=== PATIENT | male | born 1940 | race Caucasian/White ===

== ENCOUNTER → 2016-09-09 | Outpatient (CLI) | payer OTHER, MEDICARE | END | disposition home or self-care (01) | LOC: GMAB 10:36 | PROVIDERS: ATTEND Family Medicine | DX: Z12.5 Encounter for screening for malignant neoplasm of prostate (principal); I10 Essential (primary) hypertension | CPT/HCPCS: 84443; G0103 ==

== ENCOUNTER → 2017-03-19 | Outpatient (CLI) | payer MEDICARE, OTHER ==
--- NOTE | 2017-03-21 07:24 | US ---
Procedure: US RETROPERITONEUM Exam Date: 03/19/2017 12:00 AM CDT Ordering Provider: JIMI MOLINA Clinical Indication: RENAL MASS Comparison: None available Technique: Real-time ultrasonography was obtained over the kidneys and quality audit representative images were recorded. Findings: The right kidney is normal in size and contour. Renal cortical thinning as well as increased echogenicity. There are no masses or hydronephrosis. 3 mm nonobstructing calculi. The left kidney is normal in size and contour. Renal cortical thinning as well as increased echogenicity. 5.0 x 4.7 x 5.2 cm lobulated hypoechoic structure within the superior pole the left kidney. There is no increased vascularity. This is favored to represent a simple cyst, however, further evaluation with renal mass CT can further evaluate. There is a smaller 1.5 x 1.3 cm simple cyst. There are no calculi or hydronephrosis. Impression: 1. Multilobulated 5.0 x 4.7 cm hypoechoic structure within the left kidney. This is favored to represent a simple cyst, however confirmation with renal mass protocol CT is recommended. 2. Medical renal disease. 3. No hydronephrosis. 4. Nonobstructing 3 mm calculi within the right kidney. Electronically signed by: Rene Stephens MD 03/21/2017 7:23 AM CDT
== END ==
LOC: US 08:30
PROVIDERS: ATTEND Urology
DX: D30.00 Benign neoplasm of unspecified kidney (principal); N20.0 Calculus of kidney

== ENCOUNTER → 2017-06-30 | Outpatient (CLI) | payer MEDICARE, OTHER ==
--- NOTE | 2017-07-01 21:38 | MRI ---
EXAM DESCRIPTION: Cervical Spine: MRI. CLINICAL HISTORY: RADICULOPATHY, CERVICAL REGION COMPARISON: Cervical spine radiographs 06/22/2017. TECHNIQUE: Multiplanar MRI, multiple sequences, non-contrast High-field. FINDINGS: C2-3: Disc desiccation with no significant bulging. Canal and bilateral foramina are patent. C3-4: Disc desiccation with posterior disc space loss. 9 x 8 mm cystic structure abutting the anterior and medial aspect of the left facet joint, encroaching on the lateral cord and the exiting left C4 nerve with neural foraminal compromise on the left. Mild narrowing of the right neural foramina. Advanced arthrosis of the left facet joint and minimal arthrosis of the right facet. Grade 1 anterolisthesis. Small uncinate spur on the right. C4-5: Disc desiccation with anterior bulging and annular fissure to the left of midline. Grade 1 anterolisthesis with posterior bulge in the midline abutting the cord with annular fissure. Bilateral moderate neural foraminal narrowing and mild canal narrowing. Mild arthrosis left facet. C5-6: Moderate disc space loss and disc desiccation. Anterior disc bulging and endplate ridging. Posterior disc osteophyte complex bulging 3 mm and abutting the cord. Trace retrolisthesis. Left neuroforamen patent. Right side disc osteophyte complex with right side spondylosis and severe right neural foraminal narrowing. Mild canal narrowing. C6-7: Disc desiccation and moderate disc space loss with anterior endplate ridging. Trace retrolisthesis. Right-sided spondylosis and disc spur osteophyte complex causing severe neural foraminal narrowing. Posterior disc bulge not abutting the cord. Mild canal narrowing and left neuroforamen is patent. Bilateral facets are unremarkable. C7-T1: Disc desiccation and trace anterolisthesis. Mild to moderate facet arthrosis bilaterally more on the left. Canal is patent. Moderate right neuroforaminal narrowing mild left neural foraminal narrowing. Hypertrophy of the posterior ligaments. T1-2: Disc desiccation with disc space maintained. No disc bulging. Canal and neural foramina are patent. Facets are unremarkable. No cord compression or cord edema. Spine is kyphotic C2-C6.. Atlantoaxial joint is minimally hypertrophied but not abutting the brainstem or cord.. Base of the cerebellar tonsils is above the foramen magnum. Paravertebral soft tissues are unremarkable. Vertebral bodies are not compressed at any level. Normal marrow signal in the remaining vertebral bodies and the posterior elements. IMPRESSION: 1. Synovial cyst from the left L3-4 degenerative facet encroaching on the left lateral cord and possible impingement of the exiting left L4 nerve. Correlate for left L4 radiculopathy. 2. Right side C5-6 spondylosis and disc osteophyte complex encroaching on the neural foramen. Severely narrowed. Correlate for right C6 radiculopathy. Posterior disc bulge. 3. Right-sided spondylosis at C6-7 with disc osteophyte complex encroaching on the neural foramen. Severely narrowed. Correlate for right C7 radiculopathy. Electronically signed by: Jewel Ray MD 07/01/2017 9:37 PM [facility]
== END | disposition home or self-care (01) ==
LOC: MRI 13:05
PROVIDERS: ATTEND Family Medicine
DX: M54.12 Radiculopathy, cervical region (principal)

== ENCOUNTER → 2017-08-13 | Outpatient (CLI) | payer MEDICARE, OTHER ==
--- NOTE | 2017-08-13 21:59 | US ---
EXAM DESCRIPTION: Carotid Duplex: ULTRASOUND. CLINICAL HISTORY: STENOSIS COMPARISON: Ultrasound of the abdominal aorta on the same visit. TECHNIQUE: Transcutaneous scanning utilizing 2-dimensional and Doppler modes to evaluate the bilateral carotid systems and vertebral arteries. Percentage of diameter of stenosis or no stenosis recorded will be based upon NASCET criteria. FINDINGS: Peak systolic/end diastolic (CM-Sec) CCA Right 87/25 Left 73/20. ICA Right proximal 60/24, mid 81/31. Left proximal 60/24, mid 57/21. Vertebral Right 46/13 Left 35/11. ECA (PS Only) Right 63 left 65. ICA/CCA peak systolic ratio: Right 0.9 Left 0.8 ICA/CCA end diastolic ratio: Right 1.3 Left 1.2 Vertebral arteries: antegrade flow. Comments: Atherosclerotic calcification in the bilateral carotid bifurcations and proximal ICAs. Spectral broadening bilateral proximal ICAs. Color turbulent flow mid right ICA. 30% area stenosis in the proximal right ICA; diameter stenosis 35%. Area stenosis proximal left ICA 41%; diameter stenosis identical. IMPRESSION: 1. Doppler evaluation of the bilateral carotid systems and vertebral arteries shows no hemodynamically significant stenoses. 2. No significant amount of plaque seen in the carotid arteries bilaterally. Bilateral vertebral arteries showed antegrade-cephalad flow. Electronically signed by: Jewel Ray MD 08/13/2017 9:57 PM [employer] Workstation: [id number]
--- NOTE | 2017-08-13 22:01 | US ---
EXAM DESCRIPTION: Aorta: Ultrasound. CLINICAL HISTORY: AAA COMPARISON: Duplex ultrasound evaluation of the bilateral carotid and vertebral vessels on this visit. TECHNIQUE: Transcutaneous scanning: Two-dimensional and Doppler modes. Technically difficult study due to patient large body habitus. FINDINGS: Abdominal aorta diameter (cm) Proximal: 2.7 x 2.0. Mid: 2.4 x 1.9. Distal: 2.5 x 2.2. Common Iliac diameter (mm) Right: 11. Left: 8.8. Other: Intimal wall thickening and irregularity with minimal calcification. IMPRESSION: No abdominal aortic aneurysm. No follow-up imaging is recommended at this time. Electronically signed by: Jewel Ray MD 08/13/2017 10:[address] [facility] Workstation: [id number]
== END | disposition home or self-care (01) ==
LOC: US 08:00
PROVIDERS: ATTEND Family Medicine
DX: I71.4 Abdominal aortic aneurysm, without rupture (principal); I65.23 Occlusion and stenosis of bilateral carotid arteries

== ENCOUNTER → 2017-09-29 | Outpatient (CLI) | payer MEDICARE, OTHER ==
--- NOTE | 2017-09-30 10:08 | US ---
EXAM DESCRIPTION: Renal: Ultrasound. CLINICAL HISTORY: COMPLEX RIGHT RENAL CYST COMPARISON: Bilateral renal arterial Doppler evaluation on the same visit. TECHNIQUE: Transcutaneous scanning: Two-dimensional and Doppler modes. FINDINGS: Right kidney measures 11.4 x 3.8 x 3.7 cm; mid-renal cortical thickness 15 mm. . Normal echogenicity. Mixed isoechoic and hypoechoic lobulated solid appearing mass in the mid cortex measuring 4.2 x 3.8 cm and peripherally vascular. No hydronephrosis No calcifications. Smooth contour of the kidney except for where the mass displaces the cortex. No perinephric fluid. Otherwise normal vascularity. Proximal ureter not visualized. Left kidney measures 12.2 x 5.6 x 5.4 cm; mid-renal cortical thickness 15 mm.. 4.9 x 4.7 x 4.5 mm mostly anechoic cyst with lobulated borders and possible septation. Second anechoic cyst measures 1.5 x 1.5 x 1.4 cm. No hydronephrosis. No calcifications. Smooth contour of the kidney with no perinephric fluid. Normal vascularity.. Proximal ureter not visualized. Urinary bladder not visualized. Abdominal aorta diameter not measured IMPRESSION: 1. Stable slightly lobulated cyst with septation in the left kidney maximum diameter 4.9 mm. No abnormal vascularity. Also stable second smaller simple cyst. 2. 4.2 cm lobulated solid mass in the right kidney mid segment, peripheral vascularity. Not seen on the prior study. Differential includes focal thickening of the cortex, benign or malignant solid tumor. Consider follow-up CT scan without and with IV contrast and thin sections. CRITICAL COMMUNICATION: The critical value was discussed directly by phone with Dr. Smyth's office nurse, Ms. Laura Dominguez LVN at approximately 1000 hours, on September 30, 2017. Electronically signed by: Jewel Ray MD 09/30/2017 10:07 AM [employer]
== END ==
LOC: US 13:54
PROVIDERS: ATTEND Urology
DX: N28.1 Cyst of kidney, acquired (principal)

== ENCOUNTER → 2017-10-08 | Outpatient (CLI) | payer MEDICARE, OTHER ==
--- NOTE | 2017-10-08 17:09 | CT ---
EXAM DESCRIPTION: CT ABDOMEN WITH CONTRAST CLINICAL HISTORY: RENAL MASS D30.00 COMPARISON: None Available. TECHNIQUE: CT of the abdomen is performed during IV bolus administration of 100 mL Optiray 320 Oral contrast media is administered as well. FINDINGS: The lung bases are clear of infiltrate. Lesions in the right lobe of the liver range in size from 0.9 to 2.1 cm and may represent cysts or incompletely enhanced hemangiomas. The larger lesion has subtle evidence of peripheral nodular enhancement. Normal enhancement of upper abdominal vessels. Gallbladder appears normal. No inflammation around the pancreas. Small accessory splenule is present. Normal adrenal glands. Stones are seen in both kidneys without obstructive uropathy. Stone in the upper calyx of the right kidney measures 4 mm. Stones in the left kidney measure 6 mm and 7 mm. Large lesion in the posterior left kidney is consistent with a cyst measuring 5.5 cm in diameter with a density of 13.6 Hounsfield units. A lesion at the lower pole of left kidney is consistent with another small cyst 1.8 cm in size with a density of 22 Hounsfield units. Question small cyst in the medial lower right kidney but this is not definite. No solid-appearing right renal mass is seen. Some mild surface undulation of the posterior right kidney is seen consistent with cortical scarring. There is normal enhancement of renal cortex bilaterally with a symmetrical appearance. Normal adrenal glands. Calcified aorta is seen without aneurysm. No retroperitoneal or mesenteric adenopathy. Bowel loops are unremarkable. Small accessory splenule is present. No free air or free fluid. Coronal and sagittal reformatted images confirm the findings. Sagittal images show advanced degenerative disc disease of lower thoracic and lumbar spine. On the coronal images, subtle nodular enhancement is seen around all 3 of the hepatic lesions strongly suggesting hemangiomas. Sonography might be helpful to demonstrate typical sonographic appearance of benign cavernous hemangiomas. Correlating with the previous sonogram September 29, 2017, the questioned mass in the right kidney was apparently prominent renal cortex perhaps between areas of scarring. Renal cysts were noted at the time the previous sonogram. IMPRESSION: Renal cysts. No solid-appearing renal mass in either kidney. Bilateral nonobstructing renal calculi. Hepatic lesions probably incompletely unenhanced hemangiomas. This exam was performed according to our departmental dose-optimization program, which includes automated exposure control, adjustment of the mA and/or kV according to patient size and/or use of iterative reconstruction technique. Total DLP equals 576.01 mGycm. Electronically signed by: Sanchez Ann MD 10/08/2017 5:09 PM [employer]ORE MA[employer]GER
== END ==
LOC: CT 07:47
PROVIDERS: ATTEND Urology
DX: D30.00 Benign neoplasm of unspecified kidney (principal); N20.0 Calculus of kidney; N28.1 Cyst of kidney, acquired

== ENCOUNTER → 2017-10-19 | Outpatient (CLI) | payer MEDICARE, OTHER | LOC: GMAB 12:34 | PROVIDERS: ATTEND Family Medicine | DX: I10 Essential (primary) hypertension (principal); Z12.5 Encounter for screening for malignant neoplasm of prostate | CPT/HCPCS: 84443; G0103 ==

== ENCOUNTER → 2018-05-30 | Outpatient (CLI) | payer MEDICARE, OTHER ==
--- NOTE | 2018-05-30 14:36 | US ---
EXAM DESCRIPTION: Abdomen,Complete: Ultrasound. CLINICAL HISTORY: RENAL CYST COMPARISON: None Available. TECHNIQUE: Transabdominal scannin-dimensional and Doppler modes. FINDINGS: Gallbladder: Normal size and echogenicity with no intraluminal stones or sludge. Wall thickness normal 2.7 mm. No fluid around the wall. Nontender with transducer pressure. Common bile duct: Normal caliber 5.7 mm. Liver: Right lobe long axis is 17.7 cm. Circumscribed echogenic region in the right lobe measures 2.6 x 2.1 x 1.7 cm. Otherwise normal echogenicity. Smooth capsule. Hepatopedal flow in the portal vein which is normal caliber, 1 cm. Intrahepatic ducts are negative. No surrounding ascites. Pancreas: Normal size and echogenicity. Duct not seen.. Abdominal aorta: Normal caliber from the proximal segment to the distal bifurcation. IVC: visualized; normal caliber. Spleen normal echogenicity; long axis measurement is 10.2 cm. Right kidney: 11.1 cm long axis with cortical thickness 11 mm and minimal increased echogenicity. Capsule is mildly lobulated. No hydronephrosis or perinephric fluid. Left kidney: 12.1 cm long axis with normal cortical thickness and echogenicity. 5.6 cm simple cyst projecting from the cortex medially. Second cyst has simple characteristics measuring 1.4 cm. IMPRESSION: 1. Appearance of the cortical thinning and increased echogenicity in the right kidney suggesting early or mild chronic renal disease. No obstruction. Left kidney has a 5.6 cm cyst otherwise, unremarkable; smaller cyst also in the kidney. 2. Liver borderline enlarged with 2.6 cm lesion most likely a hemangioma. Liver otherwise unremarkable. If liver disease is suspected or clinically significant, consider follow-up triple phase CT scan of the liver without and with IV contrast. 2. Unremarkable ultrasound findings in the gallbladder, pancreas, and spleen. Common bile duct is unremarkable. Normal aorta and IVC are normal caliber. Electronically signed by: Jewel Ray MD 05/30/2018 2:34 PM CDT
== END ==
LOC: US 09:00
PROVIDERS: ATTEND Urology
DX: D37.6 Neoplasm of uncertain behavior of liver, gallbladder and bile ducts (principal); N28.1 Cyst of kidney, acquired

== ENCOUNTER → 2018-06-01 | Outpatient (CLI) | payer MEDICARE, OTHER | LOC: LAB.O 08:26 | PROVIDERS: ATTEND Internal Medicine Interventional Cardiology | DX: E78.5 Hyperlipidemia, unspecified (principal) ==

== ENCOUNTER → 2018-06-16 | Outpatient (CLI) | payer MEDICARE, OTHER ==
--- NOTE | 2018-06-17 07:45 | RAD ---
EXAM: Pelvis CLINICAL HISTORY: LEFT HIP PAIN COMPARISON STUDY: None TECHNICAL: AP pelvis FINDINGS: The pelvic ring is intact. There is no evidence of an acute fracture. The left hip shows mild to moderate degenerative changes with minimal subchondral sclerosis and periarticular osteophytes. There are milder degenerative changes of the right hip. There are no blastic or lytic lesions. Diffuse osseous demineralization is present. IMPRESSION: 1. Mild to moderate degenerative change of the left hip and mild degenerative change in the right hip. 2. Osteopenia. Electronically signed by: Daniele Bridges MD 06/17/2018 7:44 AM [facility]
--- NOTE | 2018-06-17 07:46 | RAD ---
EXAM: Knee,Left Complete CLINICAL HISTORY: LEFT KNEE PAIN COMPARISON STUDY: None. TECHNICAL: 2 views of the knee. FINDINGS: Views of the knee demonstrate no fracture or dislocation. There is no acute bone abnormality. Joint space loss of the medial compartment is moderate to severe. There is early subchondral sclerosis. There are no large peripheral osteophytes. Mild degenerative changes are seen at the patellofemoral joint. There is a small effusion. IMPRESSION: 1. Moderate degenerative changes of the medial compartment and mild at the patellofemoral joint. 2. Small joint effusion. Electronically signed by: Daniele Bridges MD 06/17/2018 7:45 AM [facility]
== END ==
LOC: RAD 06-15 19:27
PROVIDERS: ATTEND Orthopaedic Surgery
DX: M25.562 Pain in left knee (principal); M25.552 Pain in left hip; M85.88 Other specified disorders of bone density and structure, other site; M25.462 Effusion, left knee

== ENCOUNTER → 2018-07-11 | Outpatient (CLI) | payer MEDICARE, OTHER | LOC: RESP 08:02 | PROVIDERS: ATTEND Orthopaedic Surgery | DX: Z01.818 Encounter for other preprocedural examination (principal) ==

== ENCOUNTER 2018-08-09 05:32 | Inpatient (IN) | payer MEDICARE, OTHER ==
--- NOTE | 2018-08-08 11:30 | HP ---
CHIEF COMPLAINT: Left knee pain. HISTORY OF PRESENT ILLNESS: Mr. Mcnamara is a 77-year-old male with a history of knee pain that has been going on for several years and getting progressively worse. He has failed conservative measures and still has difficulty with his activities. Because of the difficulty with activities and failure of conservative measures, he has requested operative intervention. After discussing the risks, benefits and alternatives to operative therapy, he has given informed consent for total knee arthroplasty. PAST SURGICAL HISTORY: 1. Right total knee arthroplasty. MEDICATIONS: 1. Rifampin. ALLERGIES: PENICILLIN: CODE STATUS: Full code. IMMUNIZATIONS: Up to date. FAMILY HISTORY: None pertinent to today's complaint. SOCIAL HISTORY: The patient does not smoke or use any illicit drugs. He drinks on occasion. REVIEW OF SYSTEMS: Negative except as indicated in the History of Present Illness. PHYSICAL EXAMINATION: VITAL SIGNS: Blood pressure 137/82. Pulse 83. Height 5'8". Weight 155 pounds. MENTAL STATUS: The patient is awake, alert, and is able to give a good history and participate in the physical. The patient is oriented to person, place and time. SKIN: Normal tone and turgor. HEENT: Normocephalic, atraumatic. Pupils equal, round and reactive. Mucosal membranes are moist. NECK: Normal range of motion. No thyromegaly, no lymphadenopathy. CHEST: Normal respiratory excursion. CARDIAC: Regular rate and rhythm. No murmurs, rubs or gallops. MUSCULOSKELETAL: The bilateral upper extremities show full active range of motion. He has intact sensation. They are warm and well perfused. He has no crepitus and no deformity. He has no malalignment. Strength is 5/5. The right lower extremity shows full extension and flexion is to about 125 degrees. Sensation is intact and it is warm and well perfused. There is no obvious malalignment. The left lower extremity has flexion to about 125 to 130 degrees. He has crepitus throughout his range of motion and has pain with palpation diffusely. He also has pain with patellar mobilization. There is no varus/valgus or anterior/posterior laxity. IMAGING: X-rays show severe arthritis. ASSESSMENT: 1. Osteoarthritis. PLAN: The plan at this point is for total knee arthroplasty. We have discussed the risks, benefits, and alternatives to that and the patient has given informed consent. #[id number] [facility]
[2018-08-09] MEDS ORDERED: SODIUM CHL 0.9% 100ML MINI-BAG 100 ML IVPB ONE (05:51)
[2018-08-09] MEDS ORDERED: LACTATED RINGERS 1,000 ML ONE (05:52)
[2018-08-09] MEDS ORDERED: TRANEXAMIC ACID 1,000 MG/10 ML VIAL ONE ×3 (05:53→06:42)
[2018-08-09] MEDS ORDERED: VANCOMYCIN HCL INJ 1,000 MG VIAL IVPB ONE ×2 (05:53→16:32)
[2018-08-09] MEDS ORDERED: SODIUM CHLORIDE 0.9% 250ML 250 ML ONE ×2 (05:53→16:31)
[2018-08-09] MEDS ORDERED: ceFAZolin SODIUM 1 GM VIAL ONE ×2 (05:53→06:29)
[2018-08-09] MEDS ORDERED: SODIUM CHLORIDE 0.9% 100ML 100 ML IVPB ONE (05:58)
[2018-08-09] MEDS ORDERED: ACETAMINOPHEN IV 1000MG 100 ML ONE (06:27)
[2018-08-09] MEDS ORDERED: fentaNYL CITRATE INJ 50 MCG/ML AMP ONE (06:28)
[2018-08-09] MEDS ORDERED: MIDAZOLAM INJ 5 MG/5 ML VIAL ONE (06:28)
[2018-08-09] MEDS ORDERED: MORPHINE SULF *EPIDURAL* 1 MG/ML VIAL ONE (06:28)
[2018-08-09] MEDS ORDERED: BUPIVACAINE LIPOSOME 13.3 MG/ML VIAL INJ ONE (06:29)
[2018-08-09] MEDS ORDERED: ROCURONIUM BROMIDE 10 MG/ML VIAL ONE (07:23)
[2018-08-09] MEDS: BUPIVACAINE 0.5% 30 ML VIAL INJ ONE ×2 (08:02→08:49)
[2018-08-09] MEDS: ceFAZolin SODIUM 1 GM VIAL ONE ×2 (08:02→08:48)
[2018-08-09] MEDS: BUPIVACAINE LIPOSOME 13.3 MG/ML VIAL INJ ONE ×2 (08:02→08:49)
[2018-08-09] MEDS: VANCOMYCIN HCL INJ 1,000 MG VIAL IVPB ONE ×2 (08:02→08:48)
[2018-08-09] MEDS ORDERED: ELECTROLYTE-A 1,000 ML IVS ONE (08:36)
[2018-08-09] MEDS ORDERED: SUGAMMADEX SODIUM 200 MG/2 ML VIAL IV ONE (08:38)
[2018-08-09] MEDS ORDERED: PROPOFOL 200 MG/20 ML VIAL IV ONE (10:00)
[2018-08-09] MEDS ORDERED: DEXAMETHASONE INJ 10 MG/ML VIAL IV ONE (10:00)
[2018-08-09] MEDS ORDERED: METOCLOPRAMIDE HCL INJ 10 MG/2 ML VIAL IV ONE (10:00)
[2018-08-09] MEDS ORDERED: raNITIdine HCL INJ 25 MG/ML VIAL IV ONE (10:00)
[2018-08-09] MEDS ORDERED: ePHEDrine SULF 50 MG/ML IV ONE (10:00)
[2018-08-09] MEDS ORDERED: LIDOCAINE 1% 10 ML VIAL INJ ONE (10:00)
[2018-08-09] MEDS ORDERED: MORPHINE PCA 1 MG/ML 100 ML BAG IVPB ONE (10:08)
[2018-08-09] MEDS ORDERED: NALOXONE HCL INJ 0.4 MG/ML VIAL IV PRN (10:10)
[2018-08-09] MEDS ORDERED: ZOLPIDEM TARTRATE 5 MG TAB PO PRN (10:10)
[2018-08-09] MEDS ORDERED: PROMETHAZINE HCL INJ 25 MG in SODIUM CHLORIDE 0.9% 50ML 50 ML IVPB PRN (10:10)
[2018-08-09] MEDS ORDERED: BISACODYL SUPPOSITORY 10 MG PR PRN (10:10)
[2018-08-09] MEDS ORDERED: MORPHINE SULFATE INJ 10 MG/ML VIAL IM PRN (10:10)
[2018-08-09] MEDS ORDERED: TRANEXAMIC ACID INJ 1,000 MG in SODIUM CHLORIDE 0.9% 100ML 100 ML IVPB ONE (10:10)
[2018-08-09] MEDS ORDERED: ALUMINUM & MAGNESIUM HYDROXIDE 30 ML UD PO PRN (10:10)
[2018-08-09] MEDS ORDERED: ONDANSETRON INJ 4 MG/2 ML VIAL IV PRN (10:10)
[2018-08-09] MEDS ORDERED: MAGNESIUM HYDROXIDE 30 ML UD PO PRN (10:10)
[2018-08-09] MEDS ORDERED: PROMETHAZINE HCL INJ 12.5 MG in SODIUM CHLORIDE 0.9% 50ML 50 ML IVPB PRN (10:10)
[2018-08-09] MEDS ORDERED: DEX 5% W/NACL 0.45% 1000ML 1,000 ML IVS PRN (10:10)
[2018-08-09] MEDS ORDERED: MORPHINE SULFATE INJ 10 MG/ML VIAL IV PRN (10:10)
[2018-08-09] MEDS ORDERED: ACETAMINOPHEN 500 MG TAB PO PRN (10:10)
[2018-08-09] MEDS ORDERED: SODIUM CHLORIDE 0.9% (FLUSH) 10 ML SYG IV PRN (10:10)
[2018-08-09] MEDS ORDERED: BENZOCAINE-MENTH LOZ (CEPACOL) 1 EA LOZ MT PRN (10:10)
[2018-08-09] MEDS ORDERED: ACETAMINOPHEN 325 MG TAB PO PRN (10:10)
[2018-08-09] MEDS ORDERED: MORPHINE PCA 1 MG/ML 100 ML BAG IVPB SCH (10:30)
[2018-08-09] MEDS ORDERED: SODIUM CHLORIDE 0.45% 1000ML 1,000 ML IVS PRN (11:31)
--- NOTE | 2018-08-09 11:33 | RAD ---
EXAM DESCRIPTION: Knee,Left 2 or More Views CLINICAL HISTORY: 78 years Male, TKA COMPARISON: June 16, 2018 FINDINGS: There has been interval left knee arthroplasty without hardware or other surgical complication. There is soft tissue gas anteriorly is likely related to recent surgery. Vascular calcifications are noted. IMPRESSION: Postoperative changes in the left knee without apparent hardware or other surgical complication. Electronically signed by: Andrew Lechuga MD 08/09/2018 11:32 AM [facility]
--- NOTE | 2018-08-09 12:02 | CONS ---
SUPERVISING PHYSICIAN: Elmo Beauchamp MD REASON FOR CONSULTATION: Medical management postoperatively. HISTORY OF PRESENT ILLNESS: This is a 77-year-old male patient who has been having ongoing left knee pain for several years. He failed conservative measures and, therefore, had an elective left total knee arthroplasty today. There were no intraoperative complications. Postoperatively, he is awake without any significant pain at this time although he has had some pain medications. We have been asked by Dr. Mcallister for medical management. PAST MEDICAL HISTORY: 1. Diabetes mellitus, for which he takes metformin. 2. Hyperlipidemia. 3. Hypertension. 4. Osteoarthritis. PAST SURGICAL HISTORY: 1. Colonoscopy. 2. Right total knee arthroplasty. 3. Nasal surgery. CURRENT MEDICATIONS: 1. Lisinopril 30 mg in the morning. 2. Metformin 1000 mg b.i.d. 3. Mobic 50 mg daily. 4. HCTZ 25 mg daily. 5. Prilosec 40 mg daily. 6. Advil 200 mg 3 times p.o. daily. ALLERGIES: PENICILLIN. FAMILY HISTORY: Father is 92 years old. Mother at age of 80 from stroke. Brother with cardiomyopathy at age 59. SOCIAL HISTORY: He is a nonsmoker, no illicit drugs. He does drink some vodka on occasion. He quit smoking in 1980. REVIEW OF SYSTEMS: CONSTITUTIONAL: No fever or chills. No recent weight loss or weight gain. HEENT: No headaches, vision changes, ear pain, nasal congestion or throat pain. RESPIRATORY: No cough, hemoptysis or pleuritic chest pain. CARDIOVASCULAR: No chest pain, palpitations or peripheral edema. GASTROINTESTINAL: No nausea, vomiting, diarrhea, constipation or abdominal pain. GENITOURINARY: No dysuria, frequency or flank pain. HEMATOLOGIC: No easy bruising and no transfusion reaction. MUSCULOSKELETAL: Positive for left knee pain. No other joint pain or joint swelling. ENDOCRINE: No polydipsia, polyuria or polyphagia. No heat or cold intolerance. PHYSICAL EXAMINATION: VITAL SIGNS: Blood pressure 116/64. Heart rate 89. Respiratory rate 16. Temperature 97.2. Oxygen saturation 96%. GENERAL: Mr. Mcnamara is a 78-year-old male patient in no active distress currently. HEENT: Normocephalic, atraumatic. Pupils are equal and reactive. No nasal drainage. Throat with slightly dry mucosa. NECK: Supple. Midline trachea. No jugular venous distention. CHEST: Symmetrical with equal rise and fall of the chest with inspiration and expiration. Lung sounds are clear to auscultation bilaterally. CARDIOVASCULAR: Regular rate and rhythm. Normal S1, S2. ABDOMEN: Soft. Positive bowel sounds. No tenderness to palpation. No organomegaly. GENITOURINARY: Deferred. EXTREMITIES: Lower extremities with no significant edema. Pulses 2+. Capillary refill is less than 2 seconds. There are SCDs to bilateral lower extremities. The left knee is wrapped in an Jama type dressing. ASSESSMENT: 1. Left knee osteoarthritis status post left total knee arthroplasty. 2. History of diabetes, reportedly controlled on metformin. 3. Hypertension, currently controlled. 4. Hyperlipidemia. PLAN: The patient will participate in physical therapy postoperatively per Dr. Mcallister's orders. We will recheck his hemoglobin in the morning to ensure that is okay. I will resume all his home medications and ensure he is on DVT prophylaxis. #[id number] [facility]
--- NOTE | 2018-08-09 13:57 | RAD ---
EXAM DESCRIPTION: Knee,Left 2 or More Views CLINICAL HISTORY: 78 years Male, TKA COMPARISON: June 16, 2018 FINDINGS: There has been interval left knee arthroplasty without hardware or other surgical complication. There is soft tissue gas anteriorly is likely related to recent surgery. Vascular calcifications are noted. IMPRESSION: Postoperative changes in the left knee without apparent hardware or other surgical complication. Electronically signed by: Andrew Lechuga MD 08/09/2018 11:32 AM [facility]
--- NOTE | 2018-08-09 14:08 | RAD ---
EXAM DESCRIPTION: Knee,Left 2 or More Views CLINICAL HISTORY: 78 years Male, TKA COMPARISON: June 16, 2018 FINDINGS: There has been interval left knee arthroplasty without hardware or other surgical complication. There is soft tissue gas anteriorly is likely related to recent surgery. Vascular calcifications are noted. IMPRESSION: Postoperative changes in the left knee without apparent hardware or other surgical complication. Electronically signed by: Andrew Lechuga MD 08/09/2018 11:32 AM [facility]
[2018-08-09] MEDS: IV SET AND CAP CHANGE INJ INJ SCH (16:29)
[2018-08-09] MEDS ORDERED: ceFAZolin SODIUM 2 GRAMS PREMI 50 ML IVPB ONE ×2 (16:31→19:42)
[2018-08-09] MEDS: ceFAZolin SODIUM 2 GRAMS PREMI 2 GM in PREMIX BAG 1 BAG IVPB SCH ×2 (16:33→23:52)
[2018-08-09] MEDS: metFORMIN HCL 500 MG TAB PO SCH (16:57)
[2018-08-09] MEDS: CELECOXIB 100 MG CAP PO SCH (16:57)
[2018-08-09] MEDS: VANCOMYCIN HCL INJ 1,000 MG in SODIUM CHLORIDE 0.9% 250ML 250 ML IVPB SCH (17:44)
[2018-08-09] MEDS ORDERED: ENOXAPARIN SODIUM 30 MG/0.3 ML SYG SUBCU ONE (19:42)
[2018-08-09] MEDS ORDERED: diphenhydrAMINE HCL 25 MG CAP PO PRN (21:09)
[2018-08-09] MEDS ORDERED: OMEPRAZOLE CAP 20 MG CAP ONE (21:13)
[2018-08-09] MEDS: DOCUSATE CALCIUM 240 MG CAP PO SCH (21:35)
[2018-08-09] MEDS: OMEPRAZOLE CAP 20 MG CAP PO SCH (21:35)
[2018-08-09] MEDS: LISINOPRIL 10 MG TAB PO SCH (21:36)
[2018-08-09] MEDS: ENOXAPARIN SODIUM 30 MG/0.3 ML SYG SUBCU SCH (23:28)
[2018-08-10] MEDS: HYDROcodone 5MG/APAP 325MG 1 EA TAB PO PRN ×4 (04:56→21:18)
[2018-08-10] MEDS ORDERED: SODIUM CHLORIDE 0.9% 250ML 250 ML ONE (05:02)
[2018-08-10] MEDS ORDERED: VANCOMYCIN HCL INJ 1,000 MG VIAL IVPB ONE (05:03)
[2018-08-10] MEDS: VANCOMYCIN HCL INJ 1,000 MG in SODIUM CHLORIDE 0.9% 250ML 250 ML IVPB SCH (06:13)
[2018-08-10] MEDS: OMEPRAZOLE CAP 20 MG CAP PO SCH (06:13)
--- NOTE | 2018-08-10 07:58 | OP ---
DATE OF PROCEDURE: 08/09/18 PREOPERATIVE DIAGNOSIS: 1. Osteoarthritis of the knee. POSTOPERATIVE DIAGNOSIS: 1. Osteoarthritis of the knee. PROCEDURE: 1. Total knee arthroplasty. SURGEON: William Mcallister MD. CATTLE FEEDER: Jewel Miller CST, SA-C. ANESTHESIA: General anesthesia. COMPLICATIONS: None. FINDINGS: Severe osteoarthritis of the knee. INDICATION: Mr. Mcnamara has a long history of pain in the knee. It has been refractory to conservative measures. Because of the ongoing pain, he has requested operative intervention. After discussing the risks, benefits and alternatives to that, the patient has given informed consent for total knee arthroplasty. PROCEDURE: The patient was brought to the Operating Room and placed in supine position. General anesthesia was induced and the patient's leg was sterilely prepped and draped. Following prepping and draping, the distal femur was exposed and using an intramedullary guide, the distal femoral cut was made. The appropriate sized cutting block was measured, pinned into place, and the anterior, posterior, and chamfer cuts were made. The ACL was transected and the tibia was subluxed. Both the medial and lateral menisci were removed. An intramedullary guide was used to make the proximal tibial cut. The appropriate sized base plate was placed and a trial polyethylene was placed. The trial femur was placed, the knee was reduced, and the knee was taken through a range of motion. The knee was stable in anterior, posterior, varus and valgus stress. The patella tracked anatomically without evidence of subluxation or dislocation. After trialing, the trial components were removed and the bony surfaces were thoroughly irrigated with saline. Following irrigation, the surfaces were dried and the final components were cemented into place. The excess cement was removed and the remaining cement was allowed to cure. The knee was again taken through a range of motion to confirm stability. The wound was then irrigated with saline and closure was performed using PDS to approximate the arthrotomy followed by closure of the subcutaneous tissues with a combination of running and interrupted Monocryl sutures. Sterile dressing was placed. The patient was awoken from anesthesia and taken to Recovery. COMPONENTS: [place] [employer] knee, size 3 femur, size 4 tibia, 11 mm insert. POSTOPERATIVE PLAN: The patient will be weight-bearing as tolerated on postoperative day 1. #[id number] [facility]
[2018-08-10] MEDS ORDERED: ceFAZolin SODIUM 2 GRAMS PREMI 50 ML IVPB ONE (08:06)
[2018-08-10] MEDS: metFORMIN HCL 500 MG TAB PO SCH ×2 (08:08→17:01)
[2018-08-10] MEDS: CELECOXIB 100 MG CAP PO SCH ×2 (08:09→17:01)
[2018-08-10] MEDS: ceFAZolin SODIUM 2 GRAMS PREMI 2 GM in PREMIX BAG 1 BAG IVPB SCH (08:09)
[2018-08-10] MEDS: FISH OIL 1,200 MG CAP PO SCH (08:45)
[2018-08-10] MEDS: MULTIPLE VITAMINS W/ MINERALS 1 EA TAB PO SCH (08:45)
[2018-08-10] MEDS: MAGNESIUM OXIDE 400 MG TAB PO SCH (08:45)
[2018-08-10] MEDS ORDERED: MAGNESIUM SULFATE PREMIX 2GM 2 GM in PREMIX BAG 1 BAG IVPB ONE (09:18)
[2018-08-10] MEDS ORDERED: MAGNESIUM SULFATE PREMIX 2GM 50 ML IVPB ONE (10:01)
[2018-08-10] MEDS: CYCLOBENZAPRINE HCL 10 MG TAB PO PRN ×2 (10:45→18:21)
--- NOTE | 2018-08-10 11:13 | PN ---
DATE: 08/10/18 SUBJECTIVE: He is doing pretty well and he has good pain control today. OBJECTIVE: Afebrile. Vital signs stable. Dressing is clean, dry and intact. ASSESSMENT: Status post total knee arthroplasty. PLAN: The plan at this point is to continue with weightbearing as tolerated as well as CPM. #[id number] [facility]
[2018-08-10] MEDS: ENOXAPARIN SODIUM 30 MG/0.3 ML SYG SUBCU SCH ×2 (11:28→22:38)
--- NOTE | 2018-08-10 13:32 | PN ---
SUPERVISING PHYSICIAN: Elmo Beauchamp MD DATE: 08/10/18 SUBJECTIVE: The patient is sitting up in his chair in his room. He just finished physical therapy and got slightly nauseated after his therapy session. His nurses gave him some Zofran. Other than the nausea, he has no complaints. His is at the bedside. We discussed his plan of care. OBJECTIVE: VITAL SIGNS: T-max 24 hours 100.1. Heart rate 90. Blood pressure 102/61. Respiratory rate 18. O2 saturation 93% on 2 liters. RESPIRATORY: Essentially clear to auscultation bilaterally. CARDIAC: Regular rate and rhythm. GASTROINTESTINAL: Abdomen is soft, nondistended, nontender. Bowel sounds are positive. EXTREMITIES: He has a dressing with an [place] bandage to his left knee that is dry and intact. Bilateral pedal pulses are palpable at +2. NEUROLOGIC: Awake, alert and oriented times three. LABORATORY: Hemoglobin 9.7, hematocrit 27.6. Sodium 130, potassium 3.8, chloride 94, carbon dioxide 28, BUN 13, creatinine 0.65. Blood sugars have run between 175 and 217. Hemoglobin A1c is 6.1. Calcium 8.1, magnesium 1.3. All other labs and films have been reviewed via the EMR. ASSESSMENT: 1. Left knee osteoarthritis status post left total knee arthroplasty performed per Dr. William Mcallister, orthopedic surgeon, postoperative day #1. 2. Electrolyte imbalance, mostly hyponatremia and hypomagnesemia. 3. History of diabetes with hemoglobin A1c of 6.1. His diabetes is controlled on metformin. 4. Hypertension, currently controlled. 5. Hyperlipidemia. PLAN: We will continue present supportive care. Orthopedic issues will be per Dr. William Mcallister, orthopedic surgeon. He will continue with his physical therapy for strengthening and conditioning. I have ordered his wheelchair and we will plan on discharge on Wednesday. He will have outpatient physical therapy at [facility]'s physical therapy department. I have also given him some magnesium supplementation and I will recheck his labs in the morning. He has normal saline going at this time. We will continue to monitor the patient closely and follow as needed. [facility][id number] [facility]
[2018-08-10] MEDS: traMADol HCL 50 MG TAB PO PRN (18:20)
[2018-08-10] MEDS: LISINOPRIL 10 MG TAB PO SCH (21:15)
[2018-08-10] MEDS: DOCUSATE CALCIUM 240 MG CAP PO SCH (21:16)
[2018-08-10] MEDS: TEMAZEPAM 15 MG CAP PO PRN (21:19)
[2018-08-11] MEDS: HYDROcodone 5MG/APAP 325MG 1 EA TAB PO PRN ×4 (05:27→20:57)
[2018-08-11] MEDS: OMEPRAZOLE CAP 20 MG CAP PO SCH (06:19)
[2018-08-11] MEDS: metFORMIN HCL 500 MG TAB PO SCH ×2 (08:01→17:08)
[2018-08-11] MEDS: CELECOXIB 100 MG CAP PO SCH ×2 (08:01→17:08)
[2018-08-11] MEDS: MULTIPLE VITAMINS W/ MINERALS 1 EA TAB PO SCH (08:56)
[2018-08-11] MEDS: FISH OIL 1,200 MG CAP PO SCH (08:56)
[2018-08-11] MEDS: MAGNESIUM OXIDE 400 MG TAB PO SCH (08:56)
[2018-08-11] MEDS: SODIUM CHLORIDE 0.9% (FLUSH) 10 ML SYG IV SCH ×2 (09:00→21:26)
[2018-08-11] MEDS: ENOXAPARIN SODIUM 30 MG/0.3 ML SYG SUBCU SCH ×2 (11:38→21:53)
[2018-08-11] MEDS ORDERED: FUROSEMIDE INJ 20 MG/2 ML VIAL IV ONE (14:53)
[2018-08-11] MEDS: traMADol HCL 50 MG TAB PO PRN (17:07)
[2018-08-11] MEDS: CYCLOBENZAPRINE HCL 10 MG TAB PO PRN (17:08)
--- NOTE | 2018-08-11 18:04 | PN ---
DATE: 08/11/18 SUPERVISING PHYSICIAN: Elmo Beauchamp M.D. SUBJECTIVE: The patient is lying in bed. He just had his physical therapy and walked down the hallway. He has no complaints of nausea, vomiting or diarrhea. He did say he did not feel like eating much for supper. He just was not hungry. He has also complained that he had some muscle spasms in his leg. He just received a muscle relaxer and he said that that had helped in the past. OBJECTIVE: VITAL SIGNS: Temperature 99.1, heart rate 77, blood pressure 125/69, respiratory rate 18, O2 sat 95% on 2 liters nasal cannula. RESPIRATORY: Essentially clear to auscultation bilaterally. CARDIAC: Regular rate and rhythm. GASTROINTESTINAL: Abdomen is soft, nondistended, non-tender. Bowel sounds are positive. EXTREMITIES: Bilateral pedal pulses are +2. Dressing to his left knee is dry and intact. There is minimal redness or edema to his left leg. NEUROLOGIC: He is awake, alert and oriented times three. LABORATORY: Sodium is slightly low at 131 with potassium 3.8, chloride 93, calcium 8.6, magnesium 1.9. All other labs and films have been reviewed via the EMR. ASSESSMENT: 1. Left knee osteoarthritis status post left total knee arthroplasty performed per Dr. William Mcallister, orthopedic surgeon, postoperative day #2. 2. Electrolyte imbalance, mostly resolved. 3. History of diabetes with hemoglobin A1c of 6.1. His diabetes is controlled on metformin. 4. Hypertension, currently controlled on medications. 5. Hyperlipidemia. PLAN: We will continue presently supportive care. Orthopedic issues will be per Dr. William Mcallister, orthopedic surgeon. He will continue with his physical therapy for strengthening and conditioning. I have ordered his walker and they will deliver it tomorrow. Most likely we will discharge after physical therapy on Wednesday morning. We will continue to monitor him closely and follow as needed. Dr. Beauchamp is the collaborating physician available for consultation. #[id number] [facility]
[2018-08-11] MEDS: DOCUSATE CALCIUM 240 MG CAP PO SCH (20:56)
[2018-08-11] MEDS: LISINOPRIL 10 MG TAB PO SCH (20:57)
[2018-08-11] MEDS: TEMAZEPAM 15 MG CAP PO PRN (20:58)
[2018-08-12] MEDS: HYDROcodone 5MG/APAP 325MG 1 EA TAB PO PRN ×3 (06:14→20:41)
[2018-08-12] MEDS: OMEPRAZOLE CAP 20 MG CAP PO SCH (06:15)
[2018-08-12] MEDS: CELECOXIB 100 MG CAP PO SCH ×2 (07:25→17:19)
[2018-08-12] MEDS: metFORMIN HCL 500 MG TAB PO SCH ×2 (07:26→17:19)
[2018-08-12] MEDS: MULTIPLE VITAMINS W/ MINERALS 1 EA TAB PO SCH (08:17)
[2018-08-12] MEDS: FISH OIL 1,200 MG CAP PO SCH (08:17)
[2018-08-12] MEDS: hydroCHLOROthiazide 25 MG TAB PO SCH ×2 (08:17→20:39)
[2018-08-12] MEDS: SODIUM CHLORIDE 0.9% (FLUSH) 10 ML SYG IV SCH ×2 (08:17→20:43)
[2018-08-12] MEDS: MAGNESIUM OXIDE 400 MG TAB PO SCH (08:17)
[2018-08-12] MEDS: IV SET AND CAP CHANGE INJ INJ SCH (10:39)
[2018-08-12] MEDS: ENOXAPARIN SODIUM 30 MG/0.3 ML SYG SUBCU SCH ×2 (10:56→22:44)
[2018-08-12] MEDS: LISINOPRIL 10 MG TAB PO SCH (20:40)
[2018-08-12] MEDS: TEMAZEPAM 15 MG CAP PO PRN (20:41)
[2018-08-12] MEDS: DOCUSATE CALCIUM 240 MG CAP PO SCH (20:43)
[2018-08-12] MEDS ORDERED: MAGNESIUM HYDROXIDE 30 ML UD PO ONE (21:00)
[2018-08-12] MEDS ORDERED: BISACODYL SUPPOSITORY 10 MG PR ONE (21:00)
--- NOTE | 2018-08-12 21:41 | PN ---
DATE: 08/12/18 SUPERVISING PHYSICIAN: Elmo Beauchamp M.D. SUBJECTIVE: The patient is sitting up in his bed. He is visiting with his family. He did his physical therapy today and felt like he was doing well. He actually did his steps and felt quite good about it and he feels like he can go home tomorrow. He has no complaints of nausea, vomiting, chest pain or shortness of breath. OBJECTIVE: VITAL SIGNS: He is afebrile with a temperature of 98.4, heart rate 8, blood pressure 106/68, respiratory rate 18, O2 sat 92% on room air. RESPIRATORY: Essentially clear to auscultation bilaterally. CARDIAC: Regular rate and rhythm. GASTROINTESTINAL: Abdomen is soft, nondistended, non-tender. Bowel sounds are positive. EXTREMITIES: He has a dressing to his left knee that is dry and intact. Bilateral pedal pulses are palpable at +2. NEUROLOGIC: He is awake, alert and oriented times three. LABORATORY: Sodium is slightly low at 131, potassium 3.8, chloride 93, magnesium 1.9. Blood sugars have run between 141 and 217. All other labs and films have been reviewed via the EMR. ASSESSMENT: 1. Left knee osteoarthritis status post left total knee arthroplasty performed per Dr. William Mcallister, orthopedic surgeon, postoperative day #3. 2. Electrolyte imbalance that is mostly resolving except for he still has a slightly low sodium of 131. 3. History of diabetes with hemoglobin A1c of 6.1. His diabetes is controlled on metformin. 4. Hypertension, currently controlled on medications. 5. Hyperlipidemia. PLAN: We will continue present supportive care. Orthopedic issues will be per Dr. William Mcallister, orthopedic surgeon. He will continue with his physical therapy for strengthening and conditioning tomorrow and after his morning session he will be discharged home. He will do outpatient therapy at [facility]'s Physical Therapy Department. His walker has been delivered to his room from the [employer]. He will begin his therapy on Wednesday. He will followup with Dr. Mcallister as instructed. We will continue to monitor closely and follow as needed. Dr. Beauchamp is the collaborating physician available for consultation. [id number] [facility]
[2018-08-13] MEDS: HYDROcodone 5MG/APAP 325MG 1 EA TAB PO PRN (06:02)
[2018-08-13] MEDS: OMEPRAZOLE CAP 20 MG CAP PO SCH (06:02)
[2018-08-13] MEDS: metFORMIN HCL 500 MG TAB PO SCH (07:08)
[2018-08-13] MEDS: CELECOXIB 100 MG CAP PO SCH (07:08)
[2018-08-13] MEDS: FISH OIL 1,200 MG CAP PO SCH (08:17)
[2018-08-13] MEDS: MAGNESIUM OXIDE 400 MG TAB PO SCH (08:17)
[2018-08-13] MEDS: MULTIPLE VITAMINS W/ MINERALS 1 EA TAB PO SCH (08:17)
[2018-08-13] MEDS: SODIUM CHLORIDE 0.9% (FLUSH) 10 ML SYG IV SCH (08:17)
[2018-08-13 09:41] VITALS: O2SAT 95
[2018-08-13] MEDS: ENOXAPARIN SODIUM 30 MG/0.3 ML SYG SUBCU SCH (10:21)
[2018-08-13 11:11] VITALS: BP 109/66; TEMP 98
--- NOTE | 2018-08-14 11:58 | DS ---
SUPERVISING PHYSICIAN: Elmo Beauchamp M.D. ADMISSION DIAGNOSIS: 1. Left knee osteoarthritis status post left total knee arthroplasty. 2. History of diabetes, reportedly controlled on metformin. 3. Hypertension, currently controlled. 4. Hyperlipidemia. DISCHARGE DIAGNOSIS: 1. Left knee osteoarthritis status post left total knee arthroplasty. Postoperative day #4. 2. Electrolyte imbalance, resolved to include hyponatremia. 3. History of diabetes with a hemoglobin A1c of 6.1, controlled on metformin. 4. Hypertension, controlled on medications. 4. Hyperlipidemia. REASON FOR HOSPITALIZATION: This is a 77-year-old male patient who has been having ongoing left knee pain for several years. He failed conservative measures and, therefore, had an elective left total knee arthroplasty today. There were no intraoperative complications. Postoperatively, he is awake without any significant pain at this time although he has had some pain medications. We have been asked by Dr. Mcallister for medical management. LABORATORY STUDIES: Postoperative H&H was 9.7 and 27.6 respectively with chemistry showing an improving sodium at 131 at discharge with potassium 3.8, BUN 11, creatinine 0.67. Blood sugars ranged between 141 and 217. Hemoglobin A1c was 6.1. Magnesium 1.9. Urine drug screen was negative for all substances tested. RADIOLOGY: No additional radiographic studies after admission. CONSULTATION: Hospitalist Services. See Toby Gutiérrez's note for consultation. PROCEDURES: As noted in History of Present Illness, total knee arthroplasty performed by Dr. William Mcallister. Please see Dr. Mcallister's Operative note for details. HOSPITAL COURSE: Mr. Mcnamara was admitted on 08/09/18 for an elective left total knee arthroplasty that was performed by Dr. William Mcallister. The patient had no intraoperative complications. Postoperatively he was seen and followed through discharge. He was able to continue with his physical therapy while in the hospital with no complications. He had good pain control. He was advancing his diet as tolerated. It was felt that he had improved clinically well enough to continue with outpatient management. PLAN: The patient was discharged on 08/13/[address] Mcallister as scheduled on 08/26/18 at 8:45 AM. He was to resume his medications as prior to hospitalization and to take all medications prescribed at discharge as directed. [facility] [place] He was told to return to the hospital should any worsening symptoms. Diet at discharge was diabetic diet. Activity is to increase activity as tolerated. Wound management as per Dr. Mcallister's instructions. Medications prescribed at discharge included: 1. [place] 5/325 every 4 hours as needed, #[address] Mcallister. 2. Xarelto 10 mg daily for 7 days continued treatment. DISPOSITION: The patient is discharged to the care of family. Condition at discharge was stable and improved. #[id number] [facility]
== END 2018-08-13 11:15 | disposition home or self-care (01) | DRG 470 ==
LOC: AMB 05:32 → MS 10:35
PROVIDERS: ADMIT Orthopaedic Surgery; ATTEND Nurse Practitioner Family
PROC: 0SRD0J9 Replacement of Left Knee Joint with Synthetic Substitute, Cemented, Open Approach (ICD-10-PCS; principal; 2018-08-09 07:09)
DX: M17.12 Unilateral primary osteoarthritis, left knee (principal); E87.1 Hypo-osmolality and hyponatremia; E11.9 Type 2 diabetes mellitus without complications; I10 Essential (primary) hypertension; E78.5 Hyperlipidemia, unspecified; M62.838 Other muscle spasm; E83.42 Hypomagnesemia; Z79.84 Long term (current) use of oral hypoglycemic drugs; Z88.0 Allergy status to penicillin; Z87.891 Personal history of nicotine dependence

== ENCOUNTER → 2018-10-17 | Outpatient (CLI) | payer MEDICARE, OTHER | LOC: GMAE 10:53 | PROVIDERS: ATTEND Family Medicine | DX: I10 Essential (primary) hypertension (principal) ==

== ENCOUNTER → 2019-12-20 | Outpatient (CLI) | payer MEDICARE, OTHER ==
--- NOTE | 2019-12-21 10:37 | RAD ---
EXAM DESCRIPTION: KUB: CR/DR/XR. CLINICAL HISTORY: RENAL STONES COMPARISON: KUB December 21, 2018. TECHNIQUE: 3 VIEWS. FINDINGS: 2 radiodense stones seen in the mid and lower left kidney; more inferior stone measures 5.0 mm compared to 4.2 mm. Second stone measures 6.9 mm compared to 5.7 mm. A radiodense stone in the lower to mid aspect of the right kidney measures 4.2 mm compared to 3.3 mm. No other radiodense stones are seen. Evaluation is somewhat limited due to gas and fecal shadows over the kidneys. No radiodense stones seen bilaterally along the usual course of the ureters. Bilateral vascular calcifications in the pelvis are stable. Spondylosis at L4-5 and L5-S1 of the spine. 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 IMPRESSION: 2 radiodense stones in the left kidney 1 radiodense stone in the right kidney have enlarged since the prior study. No other radiodense stones are seen overlying the urinary tracts. Bilateral hip joint arthrosis with femoral head over coverage in appearance of the femoral head deformities suggesting femoral acetabular impingement, also seen on the prior study. L4-5 and L5-S1 lumbar spondylosis. Electronically signed by: Jewel Ray MD 12/21/2019 10:35 AM CDT
== END ==
LOC: RAD 13:14
PROVIDERS: ATTEND Urology
DX: N20.0 Calculus of kidney (principal); M16.0 Bilateral primary osteoarthritis of hip; M47.896 Other spondylosis, lumbar region; M47.897 Other spondylosis, lumbosacral region; M21.951 Unspecified acquired deformity of right thigh; M21.952 Unspecified acquired deformity of left thigh

== ENCOUNTER → 2020-02-23 | Outpatient (CLI) | payer MEDICARE, OTHER | LOC: GMAE 10:49 | PROVIDERS: ATTEND Family Medicine | DX: R10.84 Generalized abdominal pain (principal) ==

== ENCOUNTER → 2020-07-17 | Outpatient (CLI) | payer MEDICARE, OTHER ==
--- NOTE | 2020-07-18 16:41 | RAD ---
EXAM DESCRIPTION: KUB CLINICAL HISTORY: 80 years Male, RENAL STONES COMPARISON: None. FINDINGS: Small bilateral renal calculi, unchanged from the previous exam. Pelvic phleboliths, no definite ureteral calculus. Degenerative changes in the lumbar spine. IMPRESSION: Bilateral nephrolithiasis, unchanged from December 20, 2019. Electronically signed by: Andrew Lechuga MD 07/18/2020 4:39 PM PROCESS SERVER
== END ==
LOC: RAD 13:46
PROVIDERS: ATTEND Urology
DX: N20.0 Calculus of kidney (principal)